=== PATIENT | female | born 1965 | race African-American/Black ===

== ENCOUNTER 2018-08-24 19:09 | Emergency (ER) | payer MEDICAID ==
[~2018-08-24] VITALS: Ht 170.2 cm; Wt 68.2 kg
[~2018-08-24 19:09] MED LIST: FLUO-191 PO; METO25 PO; MULT-1238 PO; VITAD1000 PO
[2018-08-24] MEDS ORDERED: LORazepam 1 MG TABLET PO ONE (21:15)
[2018-08-24 22:02] VITALS: BP 124/83
== END 2018-08-24 22:13 | disposition home or self-care (01) ==
LOC: EMS 19:09
DX: G47.00 Insomnia, unspecified (principal); I10 Essential (primary) hypertension; E11.9 Type 2 diabetes mellitus without complications; F20.9 Schizophrenia, unspecified

== ENCOUNTER 2025-03-18 06:25 | Emergency (ER) | payer OTHER ==
[~2025-03-18] VITALS: Ht 160 cm; Wt 36.4 kg
[~2025-03-18 06:25] MED LIST changes: +FLUO-177 PO; -FLUO-191 PO; -MULT-1238 PO; -VITAD1000 PO
[2025-03-18 06:31] VITALS: TEMP 97.9
[2025-03-18 08:54] LABS: PLATELET COUNT (AUTO) 221 K/uL (150-450); RED BLOOD CELL COUNT(AUTO) 4.80 MIL/uL (4.00-5.20); RED CELL DISTRIBUTION WIDTH 14.0 % (11.5-14.5); WHITE BLOOD COUNT (AUTO) 6.0 K/uL (4.5-11.0)
[2025-03-18] MEDS: SODIUM CHLORIDE 0.9% 1,100 ML IV ONE (08:55)
[2025-03-18] MEDS: ONDANSETRON HCL 4 MG/2 ML VIAL IVP ONE (08:55)
[2025-03-18 09:02] LABS: CALCIUM, TOTAL 9.2 mg/dL (8.8-10.5); CREATININE 0.81 mg/dL (0.60-1.30); GLOMERULAR FILTR. RATE CALC > 60 mL/min (>60); GLUCOSE,RANDOM 91 mg/dL (70-110); SODIUM SERUM 142 mmol/L (136-145); UREA NITROGEN, BLOOD 10 mg/dL (7-18)
[2025-03-18 09:08] LABS: CREATINE KINASE, TOTAL ONLY 46 U/L (26-192)
[2025-03-18 09:12] LABS: TROPONIN I-HIGH SENSITIVITY 10 ng/L (<51)
[2025-03-18 11:35] VITALS: BP 140/109; PULSE 66; RESP 20; O2SAT 98
[2025-03-18] MEDS ORDERED: PERCT PO ×2 (13:23→14:27)
== END 2025-03-18 14:58 | disposition home or self-care (01) ==
LOC: EMS 06:25
DX: R11.2 Nausea with vomiting, unspecified (principal); R19.7 Diarrhea, unspecified; F20.9 Schizophrenia, unspecified; I10 Essential (primary) hypertension; Z85.01 Personal history of malignant neoplasm of esophagus; Z91.018 Allergy to other foods; Z92.21 Personal history of antineoplastic chemotherapy; Z98.890 Other specified postprocedural states; Z79.899 Other long term (current) drug therapy
CPT/HCPCS: 99285; 96374; 96361; 71045; 96375; 80048; 82550; 83880; 84484; 85025; 85610; 85730; 36415; 93005; J1171; J2405; J7030